=== PATIENT | male | born 1970 | race Two or more races ===

== ENCOUNTER → 2019-05-13 06:00 | Outpatient (CLI) | payer OTHER ==
[~2019-05-13 06:00] MED LIST: ATORVASTATIN CA10 MG PO; PHENYTOIN SODI100 MG PO
== END | disposition home or self-care (01) ==
LOC: LAB 06:00 → ADM 13:30 → EDSTATUS 05-19 13:30 → CIR.AMB 05-19 13:30
DX: K60.5 Anorectal fistula (principal); K92.2 Gastrointestinal hemorrhage, unspecified; R00.1 Bradycardia, unspecified